=== PATIENT | female | born 1945 | race Caucasian/White ===

== ENCOUNTER → 2023-10-05 08:54 | Outpatient (REF) | payer MEDICARE, OTHER, SELFPAY ==
[2023-10-05 09:26] LABS: % Basophils 2.5 % (0-2); % Eosinophils 3.7 % (0-6); % Immature Granulocytes 0.2 % (0-0.5); % Lymphocytes 35.5 % (20.5-51.1); % Monocytes 10.4 % (1.7-9.3); % Neutrophils 47.7 % (42.2-75.2); Absolute Basophils 0.1 10^3/uL (0-0.2); Absolute Eosinophils 0.2 10^3/uL (0-0.7); Absolute Monocytes 0.6 10^3/uL (0.1-0.6); Absolute Neutrophils 2.7 10^3/uL (1.4-6.5); Hematocrit 34.7 % (37.0-47.0); Hemoglobin 11.7 g/dL (12.0-16.0); Mean Corp Hgb Conc. 33.7 g/dL (33.0-37.0); Mean Corpuscular Hgb 29.9 pg (27.0-31.0); Mean Corpuscular Volume 88.7 fL (81.0-99.0); Mean Platelet Volume 9.9 fL (7.4-10.4); Nucleated Red Blood Cells % 0 %; Platelet Count 231 10^3/uL (130-400); Red Blood Cell Count 3.91 10^6/uL (4.20-5.40); White Blood Cell Count 5.7 10^3/uL (4.8-10.8)
[2023-10-05 10:17] LABS: ALT (SGPT) 37 U/L (0-35); AST (SGOT) 37 U/L (14-36); Albumin 3.9 g/dl (3.5-5.0); Alkaline Phosphatase 148 U/L (38-126); Blood Urea Nitrogen 29 mg/dl (7-17); Calcium 8.7 mg/dl (8.4-10.2); Carbon Dioxide 26 mmol/L (22-30); Chloride 106 mmol/L (98-107); Glucose 91 mg/dl (70-99); HDL Cholesterol 53 mg/dl; LDL Cholesterol, Calculated 97 mg/dl; Potassium 3.8 mmol/L (3.5-5.1); Sodium 142 mmol/L (135-145); Total Bilirubin 0.5 mg/dl (0.2-1.3); Total Cholesterol 166 mg/dl (50-199); Total Protein 6.8 g/dl (6.3-8.2); Triglyceride 84 mg/dl (10-149); Very Low Density Lipoprotein 16 mg/dl (0-30); eGFR 42.35
[2023-10-05 10:31] LABS: Free T4 1.91 ng/dl (0.78-2.19)
[2023-10-05 10:45] LABS: TSH 1.05 uIU/ml (0.47-4.68)
== END ==
LOC: OLABPATH 08:54
PROVIDERS: ATTENDING PHYSICIAN Internal Medicine
DX: N18.30 Chronic kidney disease, stage 3 unspecified (principal); I51.3 Intracardiac thrombosis, not elsewhere classified; E78.5 Hyperlipidemia, unspecified; I50.30 Unspecified diastolic (congestive) heart failure
CPT/HCPCS: 36415; 80053; 80061; 84439; 84443; 85025

== ENCOUNTER 2024-02-19 15:04 | Emergency (ER) | payer MEDICARE, OTHER, SELFPAY ==
[2024-02-19 15:10] VITALS: BP 130/56; BMI 23.4
--- NOTE | 2024-02-19 15:16 | ED.GENMED ---
History of Present Illness
<Jeana Morocho MD, Resident - Last Filed: 02/19/24 19:17>
General
Chief Complaint: Abdominal Symptoms
Source: patient
Exam Limitations: dementia
Time Seen by Provider: 02/19/24 15:10
Nursing documentation reviewed up to this point in time: agreed with
History of Present Illness
History of Present Illness:
78-year-old female with past medical history significant for brain tumor (unknown type), HFpEF, paroxysmal A-fib s/p Watchman procedure, UTI presents to the hospital for evaluation of increased lethargy weakness and nausea. Patient states that her
nausea started in the morning today and she had several episodes of emesis however she could not recall the color of her vomitus or if there is blood in it. Patient also stated that she has increased bowel movements she had 3 bowel movements since
yesterday night however she could not recall if she saw the color of stool or the consistency of stool. Patient states that she has been feeling weak and lethargic and her last meal was yesterday night.
She denies having fever, chills, abdominal pain, chest pain, shortness of breath, exposure to sick contacts or eating food at restaurants recently, recent travel history, focal weakness, lightheadedness, dizziness, syncope or near syncopal episodes.
She could not recall her primary care physician. She is oriented to herself, time, person and place.
If applicable-neuro sx onset
Onset of symptoms known: No
Time pt last seen normal is known: No
Past History
<Jeana Morocho MD, Resident - Last Filed: 02/19/24 19:17>
Past History
ED Past Medical History: Arrthythmia (afoib), CHF, HTN, Hypercholesterolemia and Other (UTI)
ED Past Surgical History: Cardiac (watchman)
Social History
Tobacco: Non-smoker
Alcohol: None
Drug: None
Personal: Single
Living: assisted living
Employment: Retired
Family History
Family History: Other
Review of Systems
<Jeana Morocho MD, Resident - Last Filed: 02/19/24 19:17>
Review of Systems
Allergies reviewed?: Yes
Constitutional: Reports fatigue; Denies fever, weight loss, night sweats or chills
EENT: Denies no symptoms
Respiratory: Denies no symptoms
Cardiac: Denies no symptoms
ABD/GI: Reports nausea, vomiting and other (Increased bowel movements.); Denies abdominal pain, diarrhea, constipated, bloody stools, black stools, anorexia or pain
: Reports no symptoms
Musculoskeletal: Reports no symptoms
Skin: Reports no symptoms
Neurological: Reports no symptoms
Endocrine: Reports no symptoms
Hematologic/Lymphatic: Reports no symptoms
Psychiatric: Reports no symptoms
Phy Exam
<Jeana Morocho MD, Resident - Last Filed: 02/19/24 19:17>
Physical Exam
Physical Exam:
General appearance - well built, and well nourished.
HEENT - Hints exam positive, right eye central nystagmus noted.
Eyes - b/l Pupil reactive to accommodation reflex, extraocular movements - full and smooth,
Ears - right ear - auditory canal clear, tympanic membrane visualized, light reflex present., left ear - auditory canal clear, tympanic membrane visualized, light reflex present.
Nose - septum intact, no turbinate hypertrophy
Oral cavity - pharynx appears normal, uvula midline, good dental hygiene.
Neck - no thyromegaly, no cervical lymphadenopathy
CVS - s1, s2 present. No murmurs, rubs and gallops.
Respiratory - b/l lobes clear to auscultation, no wheezes, rales and Ronchi.
Abdomen - soft, nontender, non-distended, no organomegaly, bowel sounds present.
Extremities - no clubbing, cyanosis, or edema
Neuro - normal strength, tone, and reflexes in all 4 extremities, pronator drift in the right hand noted, drift noted bilaterally in lower extremities
NIH Stroke Score
Level of Consciousness: 0 - Alert
LOC questions: 0-Answers both correctly
LOC Commands: 0-Performs both correctly
Best Gaze: 0-Normal
Visual Sy: 0=Normal, no visual loss
Facial palsy: 0=Normal, symmetrical
Motor - Right Arm: 1=Drift < 10 seconds
Motor - Left Arm: 0=No drift 10 seconds
Motor - Right Le-Drift < 5 seconds
Motor - Left Le-Drift < 5 seconds
Limb Ataxia: 1-Present in one limb
Sensation: 0-Normal
Best Language: 0-No aphasia
Dysarthria: 0-Normal
Extinction and Inattention: 0-No abnormality
Total Score:: 4
<Colby Bhardwaj, DO - Last Filed: 02/19/24 19:05>
NIH Stroke Score
Total Score:: 4
Course
<Jeana Morocho MD, Resident - Last Filed: 02/19/24 19:17>
Orders/Labs/Results
Orders:
Orders
02/19/24 15:08
Electrocardiogram (*1) Urgent
Reason for Study: Abdominal Pain
EKG- Treatment ONCE
02/19/24 15:24
Complete Blood Count/With Diff Urgent
Comprehensive Metabolic Panel Urgent
Lactic Acid Urgent
PTT Urgent
Prothrombin Time Urgent
02/19/24 15:48
Urinalysis Reflex To Culture Urgent
Date Specimen was Collected: 02/19/24
Time Specimen was Collected: 18:51
02/19/24 15:49
CT Head W/o Iv Contrast Urgent
Comment:
Reason For Exam: pronator drift, with h/o brain tumor
02/19/24 15:57
Ondansetron Injectable [Zofran] 4 mg IV NOW STA
02/19/24 16:00
0.9% Sodium Chloride 500 ml [Nss] 500 ml IV BOLUS
02/19/24 18:57
Prothrombin Complex(Pcc),Human [Kcentra] 1,450 unit Empty Viaflex Container 100 ml [Viaflex Empty Container] 0 ml IV NOW
Does patient have a dx of serious acute active bleeding?: Yes
Does patient have prior history of HIT?: No
Abnormal Lab Results
02/19/24
15:24
RBC 3.88 L 10^6/uL
(4.20-5.40)
Hgb 11.9 L g/dL
(12.0-16.0)
Hct 34.5 L %
(37.0-47.0)
Abs Immat Gran (auto) 0.1 H 10^3/uL
(0-0.05)
Absolute Neuts (auto) 9.7 H 10^3/uL
(1.4-6.5)
Absolute Lymphs (auto) 0.7 L 10^3/uL
(1.2-3.4)
Immature Gran % 0.6 H %
(0-0.5)
Neutrophils % 90.5 H %
(42.2-75.2)
Lymphocytes % 6.7 L %
(20.5-51.1)
PT 18.8 H Sec
(11.4-14.6)
Carbon Dioxide 21 L mmol/L
(22-30)
BUN 22 H mg/dl
(7-17)
Glucose 171 H mg/dl
(70-99)
AST 71 H U/L
(14-36)
ALT 71 H U/L
(0-35)
Alkaline Phosphatase 158 H U/L
(38-126)
02/19/24 15:24
02/19/24 15:24
Vital Signs
Initial and Last Documented VS:
Initial Vital Signs
Temp Pulse Resp BP Pulse Ox
100.1 F 86 24 130/56 92
02/19/24 15:10 02/19/24 15:10 02/19/24 15:10 02/19/24 15:10 02/19/24 15:10
Last Documented Vital Signs
Temp Pulse Resp BP Pulse Ox
98.1 F 80 17 128/63 95
02/19/24 16:30 02/19/24 18:53 02/19/24 18:53 02/19/24 18:53 02/19/24 15:10
<Colby Bhardwaj, DO - Last Filed: 02/19/24 19:05>
Orders/Labs/Results
Orders:
Orders
02/19/24 15:08
Electrocardiogram (*1) Urgent
Reason for Study: Abdominal Pain
EKG- Treatment ONCE
02/19/24 15:24
Complete Blood Count/With Diff Urgent
Comprehensive Metabolic Panel Urgent
Lactic Acid Urgent
PTT Urgent
Prothrombin Time Urgent
02/19/24 15:48
Urinalysis Reflex To Culture Urgent
Date Specimen was Collected: 02/19/24
Time Specimen was Collected: 18:51
02/19/24 15:49
CT Head W/o Iv Contrast Urgent
Comment:
Reason For Exam: pronator drift, with h/o brain tumor
02/19/24 15:57
Ondansetron Injectable [Zofran] 4 mg IV NOW STA
02/19/24 16:00
0.9% Sodium Chloride 500 ml [Nss] 500 ml IV BOLUS
02/19/24 18:57
Prothrombin Complex(Pcc),Human [Kcentra] 1,450 unit Empty Viaflex Container 100 ml [Viaflex Empty Container] 0 ml IV NOW
Does patient have a dx of serious acute active bleeding?: Yes
Does patient have prior history of HIT?: No
Abnormal Lab Results
02/19/24
15:24
RBC 3.88 L 10^6/uL
(4.20-5.40)
Hgb 11.9 L g/dL
(12.0-16.0)
Hct 34.5 L %
(37.0-47.0)
Abs Immat Gran (auto) 0.1 H 10^3/uL
(0-0.05)
Absolute Neuts (auto) 9.7 H 10^3/uL
(1.4-6.5)
Absolute Lymphs (auto) 0.7 L 10^3/uL
(1.2-3.4)
Immature Gran % 0.6 H %
(0-0.5)
Neutrophils % 90.5 H %
(42.2-75.2)
Lymphocytes % 6.7 L %
(20.5-51.1)
PT 18.8 H Sec
(11.4-14.6)
Carbon Dioxide 21 L mmol/L
(22-30)
BUN 22 H mg/dl
(7-17)
Glucose 171 H mg/dl
(70-99)
AST 71 H U/L
(14-36)
ALT 71 H U/L
(0-35)
Alkaline Phosphatase 158 H U/L
(38-126)
02/19/24 15:24
02/19/24 15:24
Vital Signs
Initial and Last Documented VS:
Initial Vital Signs
Temp Pulse Resp BP Pulse Ox
100.1 F 86 24 130/56 92
02/19/24 15:10 02/19/24 15:10 02/19/24 15:10 02/19/24 15:10 02/19/24 15:10
Last Documented Vital Signs
Temp Pulse Resp BP Pulse Ox
98.1 F 80 17 128/63 95
02/19/24 16:30 02/19/24 18:53 02/19/24 18:53 02/19/24 18:53 02/19/24 15:10
<Jeana Morocho MD, Resident - Last Filed: 02/19/24 19:17>
MDM/Problems Addressed
Differential Diagnosis Includes:
Viral gastroenteritis, increased intracranial pressure secondary to brain tumor, stroke, appendicitis.
MDM/Problems Addressed:
IV fluid bolus and Zofran IV given. EKG shows no QT prolongation repeat EKG monitoring for QT prolongation.
Chronic conditions affecting care: Other (Brain tumor unknown type.)
<Jeana Morocho MD, Resident - Last Filed: 02/19/24 19:17>
*Radiology
Radiology exam reviewed: preliminary read by ED provider and radiology read reviewed
*Pulse Oximetry
Patient hypoxic: no
*EKG
Interpreted by ED Provider?: Yes
<Colby Bhardwaj, DO - Last Filed: 02/19/24 19:05>
*Critical Care Note
Total Time (30-74mins, 75-104mins- exclusive of procedures): 35 min
comment:
The high probability of a clinically significant, sudden or life threatening deterioration of the neurovascular system(s) required my full and direct attention, intervention and personal management. The aggregate critical care time was 35 minutes.
This time is in addition to time spent performing reported procedures but includes the following:
[x] Data Review and interpretation
[x] Patient assessment and monitoring of vital signs
[x] Documentation
[x] Medication orders and management
<Jeana Morocho MD, Resident - Last Filed: 02/19/24 19:17>
Update Note
Update Note:
7 PM Case discussed with [facility] neurosurgeon Dr. Lobo who accepted patient. Her records indicate that she is on Xarelto. Will give Kcentra
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 New diagnosis updated with the patient. Discussed the risks of having cerebellar herniation and increased intracranial pressure if patient
is not immediately transferred. Per longterm records patient took her last dose of Eliquis in the morning today. IV Kcentra for reversal of Eliquis given to the patient before transfer.
Patient is being transferred to [facility] neurosurgery ICU under care of Avila Castellanos.
<Colby Bhardwaj, DO - Last Filed: 02/19/24 19:05>
Update Note
Update Note:
7 PM Case discussed with [facility] neurosurgeon Dr. Lobo who accepted patient. Her records indicate that she is on Xarelto. Will give Kcentra
ED Attending Note
<Jeana Morocho MD, Resident - Last Filed: 02/19/24 19:17>
-
Portions of this chart may have been created with voice recognition software.� Occasional wrong word or��sound alike� substitutions may have occurred due to the inherent limitations of voice recognition software.
<Colby Bhardwaj, DO - Last Filed: 02/19/24 19:05>
ED Attending Note
Patient seen and examined by attending physician: Yes
I performed a history and physical exam of patient and discussed management with resident, I reviewed resident's note and agree with documented findings and plan of care.: Yes
ED Attending Note:
I have seen and evaluated the patient with a [id number] encounter. I have spoken to the resident and involved in the medical history, the physical exam, medical decision making.
Evaluation and management service: agree unless noted differently below.
Results interpretation: agree unless noted differently below.
Focused HPI: 78-year-old female presenting from the nursing facility with increased lethargy, weakness and nausea. Patient complains of vomiting and increased bowel movements. She is unsure if this is diarrhea or not.
Physical exam: Dry mucous membranes. Soft and nontender abdomen. Sitting in bed comfortably
Medical Decision Making: Given her prior history of brain tumor, will obtain CT to rule out any evidence of intracranial bleeding or increased mass effect. Patient given fluids and nausea medicine for presumed viral gastroenteritis. Although she
has a low-grade fever, she has a very benign and nontender abdomen. White blood cell count and lactic acid within normal limits. Urinalysis pending
Update 6:36 PM patient found to have intracranial bleed which is likely from her known brain tumor. Will transfer to tertiary care center
Discharge Plan
Departure
Patient Disposition: Acute Care Hospital
Date of Disposition: 02/19/24
Time of Disposition: 19:15
Admit to: ICU
Discharge Problem:
Intracranial hemorrhage, Acute cerebellar hemorrhage
Prescriptions:
No Action
multivitamin Tablet
1 tab PO DAILY
acetaminophen 325 mg Tablet
650 mg PO Q4H PRN (Reason: mild pain)
pravastatin 40 mg tablet
40 mg PO HS
amiodarone 200 mg tablet
200 mg PO DAILY
levetiracetam 500 mg tablet
500 mg PO BID
citalopram 10 mg tablet
10 mg PO DAILY
thiamine HCl (vitamin B1) [Vitamin B-1] 100 mg Tablet
100 mg PO DAILY
ketorolac 0.5 % drops
1 drp LEFT EYE QID@08,12,16,20
prednisolone acetate 1 % drops,suspension
1 drp LEFT EYE BID
magnesium hydroxide [Milk of Magnesia] 400 mg/5 mL Suspension
30 ml PO DAILY PRN (Reason: constipation)
amlodipine 10 mg Tablet
10 mg PO DAILY
ferrous sulfate 325 mg (65 mg iron) Tablet
325 mg PO DAILY
folic acid 1 mg Tablet
1 mg PO DAILY
metoprolol tartrate 25 mg tablet
25 mg PO BID
furosemide 20 mg Tablet
40 mg PO BID AT 0800,1600 Qty: 60 0RF
cephalexin 500 mg capsule
500 mg PO TID Qty: 0 0RF
Rx Instructions:
x 10 days
Eliquis 5 mg tablet
5 mg PO BID 30 Days Qty: 60 0RF
Referrals:
Marshall Amos DO [Family Provider] -
Hospital Transfer
Other hospital: [facility]
I certify that the patient requires transfer: Yes
Discussed case with accepting physician: Avila Castellanos.
Reason for transfer: higher level of care
Interventions
Interventions:
*Risk Screen - Suicide Last Done: 02/19/24 15:10
*General Assessment Last Done: 02/19/24 15:10
*Neglect/Abuse Screening Last Done: 02/19/24 15:10
ED- Fall Risk Assessment Last Done: 02/19/24 15:22
*ED COVID-19 Vaccine History Last Done: 02/19/24 15:10
OI-Izfate-Lhfzpxlpvi Assessment Last Done: 02/19/24 15:22
Discharge Date and Time
Print Language: TELUGU
[2024-02-19 15:33] LABS: % Basophils 0.5 % (0-2); % Immature Granulocytes 0.6 % (0-0.5); % Lymphocytes 6.7 % (20.5-51.1); % Monocytes 1.7 % (1.7-9.3); % Neutrophils 90.5 % (42.2-75.2); Absolute Basophils 0.1 10^3/uL (0-0.2); Absolute Immature Granulocytes 0.1 10^3/uL (0-0.05); Absolute Lymphocytes 0.7 10^3/uL (1.2-3.4); Absolute Monocytes 0.2 10^3/uL (0.1-0.6); Absolute Neutrophils 9.7 10^3/uL (1.4-6.5); Hematocrit 34.5 % (37.0-47.0); Hemoglobin 11.9 g/dL (12.0-16.0); Mean Corp Hgb Conc. 34.5 g/dL (33.0-37.0); Mean Corpuscular Hgb 30.7 pg (27.0-31.0); Mean Corpuscular Volume 88.9 fL (81.0-99.0); Mean Platelet Volume 9.3 fL (7.4-10.4); Nucleated Red Blood Cells % 0 %; Platelet Count 231 10^3/uL (130-400); Red Blood Cell Count 3.88 10^6/uL (4.20-5.40); Red Cell Dist. Width 13.5 % (11.5-14.5); White Blood Cell Count 10.8 10^3/uL (4.8-10.8)
[2024-02-19 15:44] LABS: INR 1.59; PT 18.8 Sec (11.4-14.6)
[2024-02-19 15:45] LABS: APTT 33.8 Sec (23.4-35.0)
[2024-02-19 15:47] LABS: Lactic Acid 1.2 mmol/L (0.7-2.0)
[2024-02-19 15:53] LABS: ALT (SGPT) 71 U/L (0-35); AST (SGOT) 71 U/L (14-36); Albumin 4.6 g/dl (3.5-5.0); Alkaline Phosphatase 158 U/L (38-126); Blood Urea Nitrogen 22 mg/dl (7-17); Calcium 9.2 mg/dl (8.4-10.2); Carbon Dioxide 21 mmol/L (22-30); Chloride 105 mmol/L (98-107); Estimated Creatinine Clearance 41 ml/min; Glucose 171 mg/dl (70-99); Potassium 3.6 mmol/L (3.5-5.1); Sodium 141 mmol/L (135-145); Total Bilirubin 0.7 mg/dl (0.2-1.3); Total Protein 7.5 g/dl (6.3-8.2); eGFR > 60.00
[2024-02-19 16:00] VITALS: BP 138/60
[2024-02-19] MEDS: ZOFRAN 4 MG IV (16:01)
[2024-02-19] MEDS: NSS 500 IV (16:06)
[2024-02-19 17:00] VITALS: BP 132/56
[2024-02-19 18:53] VITALS: BP 128/63
[2024-02-19 19:00] VITALS: BP 126/58
[2024-02-19 19:35] LABS: Urine Albumin Trace (Neg - Trace); Urine Bilirubin Negative (Negative); Urine Character Clear (Clear); Urine Color Yellow; Urine Glucose Negative (Negative); Urine Ketone Trace (Negative); Urine Leukocyte Negative (Negative); Urine Nitrite Negative (Negative); Urine Occult Blood Negative (Negative); Urine Specific Gravity 1.015 (<1.030); Urine Urobilinogen Negative (Neg - 1+)
[2024-02-19] MEDS: KCENTRA 60 UNIT IV (19:38)
== END 2024-02-19 20:00 | disposition short-term general hospital (02) ==
LOC: EMR 15:04
PROVIDERS: Registered Nurse; EMERGENCY PHYSICIAN Student in an Organized Health Care Education/Training Program; FAMILY PHYSICIAN Internal Medicine
DX: I61.4 Nontraumatic intracerebral hemorrhage in cerebellum (principal); D49.6 Neoplasm of unspecified behavior of brain; I11.0 Hypertensive heart disease with heart failure; I50.32 Chronic diastolic (congestive) heart failure; E78.00 Pure hypercholesterolemia, unspecified; I48.0 Paroxysmal atrial fibrillation; F03.90 Unspecified dementia, unspecified severity, without behavioral disturbance, psychotic disturbance, mood disturbance, and anxiety; Z79.01 Long term (current) use of anticoagulants
CPT/HCPCS: 96374; 96375; 96361; 99291; 70450; 80053; 81003; 83605; 85025; 85610; 85730; 93005; J7168

== ENCOUNTER 2024-04-24 16:55 | Emergency (ER) | payer MEDICARE, OTHER, SELFPAY ==
[2024-04-24 17:16] VITALS: BP 128/62
--- NOTE | 2024-04-24 17:18 | ED.GENMED ---
ED Provider Triage
<JENNIFER Graf - Last Filed: 04/24/24 17:23>
-
Patient seen by provider in Triage?: Seen in Triage
Attestation: A medical screening examination has been initiated by a qualified medical provider. Based on the assessment performed at this time, it has been determined that an emergent medical condition may exist and the patient has been informed
that further medical evaluation and possible additional diagnostic testing may be needed.
HPI: Patient is a 78-year-old female from [facility] sent for unwitnessed fall. Pt denies headache. Denies neck pain , has no complaints . REcords from [facility] obtained no thinners.
GENERAL: Alert , in no apparent distress
EYE: No visual abnormalities.
NECK: Trachea midline
ENT: No visible abnormalities.
LUNGS: No acute respiratory distress
NEUROLOGICAL: Alert and oriented
SKIN: Skin intact. No visible changes.
MUSCULOSKELETAL: Moving extremities normally
PSYCH: Normal and appropriate interaction.
This is a medical evaluation conducted in person to initiate diagnostic evaluation and provide initial therapeutics. Please see further documentation by the treating clinician.
History of Present Illness
<JENNIFER Graf - Last Filed: 04/24/24 17:23>
General
Chief Complaint: Fall
Time Seen by Provider: 04/24/24 20:25
<Des Dubois PA-C - Last Filed: 04/24/24 23:47>
History of Present Illness
History of Present Illness:
78-year-old female presents via EMS from [facility] for evaluation after a fall. She is currently nonambulatory after a brain tumor excision was performed. Attempted to walk on if she is unable to and fell, striking her head on the ground.
No reported LOC. No blood thinners
Past History
<JENNIFER Graf - Last Filed: 04/24/24 17:23>
Past History
ED Past Medical History: Arrthythmia (afoib), CHF, HTN, Hypercholesterolemia and Other (UTI)
ED Past Surgical History: Cardiac (watchman)
Social History
Tobacco: Non-smoker
Alcohol: None
Drug: None
Personal: Single
Living: assisted living
Employment: Retired
Family History
Family History: Other
Review of Systems
<Des Dubois PA-C - Last Filed: 04/24/24 23:47>
Review of Systems
Allergies reviewed?: Yes
All Other Systems: ROS reviewed and negative except as documented in HPI and ROS
Phy Exam
<Des Dubois PA-C - Last Filed: 04/24/24 23:47>
Physical Exam
Physical Exam:
GEN: Well appearing, NAD, WDWN
HEENT: Oral mucosa moist, no scleral icterus, no nasal congestion
Cardiac: Regular rate
Lung: No respiratory distress, no tachypnea
MSK: No gross deformity or injuries
Skin: Good color, no pallor or jaundice, no rashes
Neuro: AO x3; CN II-XII grossly intact. BUE strength 5/5 in all fuchs, sensation intact and symmetric. BLE strength 5/5 in all fuchs, sensation intact and symmetric
Psych: Calm, cooperative
Course
<JENNIFER Graf - Last Filed: 04/24/24 17:23>
Orders/Labs/Results
Orders:
Orders
04/24/24 17:00
CT Cervical Spine W/o Iv Contr Urgent
Comment:
Reason For Exam: fall
CT Head W/o Iv Contrast Urgent
Comment:
Reason For Exam: fall
Vital Signs
Initial and Last Documented VS:
Initial Vital Signs
Temp Pulse Resp BP Pulse Ox
98.4 F 63 18 128/62 96
04/24/24 17:16 04/24/24 17:16 04/24/24 17:16 04/24/24 17:16 04/24/24 17:16
Last Documented Vital Signs
Temp Pulse Resp BP Pulse Ox
98.4 F 60 19 151/60 95
04/24/24 17:16 04/24/24 21:39 04/24/24 21:39 04/24/24 21:39 04/24/24 21:39
<Des Dubois PA-C - Last Filed: 04/24/24 23:47>
Orders/Labs/Results
Orders:
Orders
04/24/24 17:00
CT Cervical Spine W/o Iv Contr Urgent
Comment:
Reason For Exam: fall
CT Head W/o Iv Contrast Urgent
Comment:
Reason For Exam: fall
Vital Signs
Initial and Last Documented VS:
Initial Vital Signs
Temp Pulse Resp BP Pulse Ox
98.4 F 63 18 128/62 96
04/24/24 17:16 04/24/24 17:16 04/24/24 17:16 04/24/24 17:16 04/24/24 17:16
Last Documented Vital Signs
Temp Pulse Resp BP Pulse Ox
98.4 F 60 19 151/60 95
04/24/24 17:16 04/24/24 21:39 04/24/24 21:39 04/24/24 21:39 04/24/24 21:39
<Des Dubois PA-C - Last Filed: 04/24/24 23:47>
MDM/Problems Addressed
MDM/Problems Addressed:
Traumatic injuries identified on imaging, discharged in stable condition
<Des Dubois PA-C - Last Filed: 04/24/24 23:47>
*Critical Care Note
Total Time (30-74mins, 75-104mins- exclusive of procedures): Not Applicable
ED Attending Note
<JENNIFER Graf - Last Filed: 04/24/24 17:23>
-
Portions of this chart may have been created with voice recognition software.� Occasional wrong word or��sound alike� substitutions may have occurred due to the inherent limitations of voice recognition software.
Discharge Plan
Departure
Patient Disposition: Home (Routine Discharge)
Date of Disposition: 04/24/24
Time of Disposition: 20:34
Patient with high blood pressure during this ER visit?: No
Discharge Problem:
Fall
Instructions: Preventing falls in adults
Prescriptions:
No Action
multivitamin Tablet
1 tab PO DAILY
acetaminophen 325 mg Tablet
650 mg PO Q4H PRN (Reason: mild pain)
pravastatin 40 mg tablet
40 mg PO HS
amiodarone 200 mg tablet
200 mg PO DAILY
levetiracetam 500 mg tablet
500 mg PO BID
citalopram 10 mg tablet
10 mg PO DAILY
thiamine HCl (vitamin B1) [Vitamin B-1] 100 mg Tablet
100 mg PO DAILY
ketorolac 0.5 % drops
1 drp LEFT EYE QID@08,12,16,20
prednisolone acetate 1 % drops,suspension
1 drp LEFT EYE BID
magnesium hydroxide [Milk of Magnesia] 400 mg/5 mL Suspension
30 ml PO DAILY PRN (Reason: constipation)
amlodipine 10 mg Tablet
10 mg PO DAILY
ferrous sulfate 325 mg (65 mg iron) Tablet
325 mg PO DAILY
folic acid 1 mg Tablet
1 mg PO DAILY
metoprolol tartrate 25 mg tablet
25 mg PO BID
furosemide 20 mg Tablet
40 mg PO BID AT 0800,1600 Qty: 60 0RF
cephalexin 500 mg capsule
500 mg PO TID Qty: 0 0RF
Rx Instructions:
x 10 days
Eliquis 5 mg tablet
5 mg PO BID 30 Days Qty: 60 0RF
Referrals:
Marshall Amos DO [Family Provider] -
Interventions
Interventions:
*Risk Screen - Suicide Last Done: 04/24/24 17:16
*General Assessment Last Done: 04/24/24 17:16
*Neglect/Abuse Screening Last Done: 04/24/24 17:16
*Nursing Disposition Last Done: 04/24/24 21:41
ED-Musculoskeletal Assessment Last Done: 04/24/24 21:23
ED- Neurological Assessment Last Done: 04/24/24 21:40
ED-Skin Assessment Last Done: 04/24/24 21:23
Discharge Date and Time
Discharge Date/Time: 04/24/24 21:42
Print Language: INDONESIAN
[2024-04-24 21:39] VITALS: BP 151/60
== END 2024-04-24 21:42 ==
LOC: EMR 16:55
PROVIDERS: EMERGENCY PHYSICIAN Student in an Organized Health Care Education/Training Program; FAMILY PHYSICIAN Internal Medicine
DX: S09.90XA Unspecified injury of head, initial encounter (principal); W19.XXXA Unspecified fall, initial encounter; E78.00 Pure hypercholesterolemia, unspecified; I11.0 Hypertensive heart disease with heart failure; I50.9 Heart failure, unspecified; Z98.890 Other specified postprocedural states
CPT/HCPCS: 99284; 70450; 72125

== ENCOUNTER 2024-07-08 18:43 | Emergency (ER) | payer MEDICARE, OTHER, SELFPAY ==
[2024-07-08 18:46] VITALS: BP 153/74
[2024-07-08 19:42] LABS: ALT (SGPT) 24 U/L (0-35); AST (SGOT) 31 U/L (14-36); Albumin 4.3 g/dl (3.5-5.0); Alkaline Phosphatase 170 U/L (38-126); Blood Urea Nitrogen 23 mg/dl (7-17); Calcium 9.3 mg/dl (8.4-10.2); Carbon Dioxide 26 mmol/L (22-30); Chloride 107 mmol/L (98-107); Glucose 106 mg/dl (70-99); Potassium 4.3 mmol/L (3.5-5.1); Sodium 143 mmol/L (135-145); Total Bilirubin 0.8 mg/dl (0.2-1.3); Total Protein 7.5 g/dl (6.3-8.2); eGFR 46.33
[2024-07-08 21:32] LABS: % Basophils 1.4 % (0-2); % Eosinophils 2.7 % (0-6); % Immature Granulocytes 0.7 % (0-0.5); % Lymphocytes 19.7 % (20.5-51.1); % Monocytes 7.6 % (1.7-9.3); % Neutrophils 67.9 % (42.2-75.2); Absolute Basophils 0.1 10^3/uL (0-0.2); Absolute Eosinophils 0.2 10^3/uL (0-0.7); Absolute Immature Granulocytes 0.1 10^3/uL (0-0.05); Absolute Lymphocytes 1.6 10^3/uL (1.2-3.4); Absolute Monocytes 0.6 10^3/uL (0.1-0.6); Absolute Neutrophils 5.5 10^3/uL (1.4-6.5); Hematocrit 39.2 % (37.0-47.0); Hemoglobin 12.9 g/dL (12.0-16.0); Mean Corp Hgb Conc. 32.9 g/dL (33.0-37.0); Mean Corpuscular Hgb 29.2 pg (27.0-31.0); Mean Corpuscular Volume 88.7 fL (81.0-99.0); Mean Platelet Volume 9.8 fL (7.4-10.4); Nucleated Red Blood Cells % 0 %; Platelet Count 271 10^3/uL (130-400); Red Blood Cell Count 4.42 10^6/uL (4.20-5.40); Red Cell Dist. Width 14.2 % (11.5-14.5); White Blood Cell Count 8.1 10^3/uL (4.8-10.8)
[2024-07-08 21:44] LABS: Lactic Acid 1.6 mmol/L (0.7-2.0)
[2024-07-08 22:09] LABS: Urine Albumin 3+ (Neg - Trace); Urine Bilirubin Negative (Negative); Urine Character Slightly Cloudy (Clear); Urine Color Yellow; Urine Glucose Negative (Negative); Urine Ketone Negative (Negative); Urine Leukocyte 3+ (Negative); Urine Nitrite Negative (Negative); Urine Occult Blood 3+ (Negative); Urine Specific Gravity 1.015 (<1.030); Urine Urobilinogen Negative (Neg - 1+)
[2024-07-08 22:18] LABS: Urine Bacteria Many (Negative); Urine White Cell >100 /HPF (0-5)
[2024-07-08 22:22] LABS: Urine Calcium Oxalate Crystals Present
--- NOTE | 2024-07-08 22:45 | ED.GENMED ---
History of Present Illness
General
Chief Complaint: Skin Problem
Source: patient
Exam Limitations: none
Time Seen by Provider: 07/08/24 20:56
Nursing documentation reviewed up to this point in time: agreed with
History of Present Illness
History of Present Illness:
Patient to ED for eval of wound to plantar surface of right 2nd toe. Patient states wound has been there for a long time - unsure how long. States her OT noticed that wound was deep and facility had her transferred to the ED for eval. SHe denies
fever/chills. Painful to touch.
Past History
Past History
ED Past Medical History: Arrthythmia (afoib), CHF, HTN, Hypercholesterolemia and Other (UTI)
ED Past Surgical History: Cardiac (watchman)
Social History
Tobacco: Non-smoker
Alcohol: None
Drug: None
Personal: Single
Living: assisted living
Employment: Retired
Family History
Family History: Other
Review of Systems
Review of Systems
Allergies reviewed?: Yes
All Other Systems: ROS reviewed and negative except as documented in HPI and ROS
Constitutional: Reports no symptoms
EENT: Reports no symptoms
Respiratory: Reports no symptoms
Cardiac: Reports no symptoms
ABD/GI: Reports no symptoms
Musculoskeletal: Reports joint pain (Pain to right 2nd toe)
Skin: Reports no symptoms (ulceration to plantar surface of right 2nd toe)
Neurological: Reports no symptoms
Psychiatric: Reports no symptoms
Phy Exam
General Physical Exam
General Presentation: well appearing and no apparent distress
General age: appears stated age
General Skin: warm and dry
General Habitus: normal
General Mental: alert
Musculoskeletal Exam
Musculoskeletal Exam: full ROM and neuro vasc intact
Skin Exam
Skin Exam: normal color, warm/dry and other (0.5cm ulceration to plantar surface of right 2nd toe. No drainage noted. WOund culture obtained. No evidence of osteo onxray. No erythema to toe or foot.)
Psychiatric Exam
Psychiatric Exam: normal mood/affect
Course
Orders/Labs/Results
Orders:
Orders
07/08/24 18:56
Blood Culture Q20M
GRETCHEN Source: Blood/Venous
Specimen Description:
Comment: Urgent from separate sites. If patient screens positive for possible sepsis
07/08/24 19:03
Comprehensive Metabolic Panel Urgent
07/08/24 19:17
Blood Culture Q20M
GRETCHEN Source: Blood/Venous
Specimen Description:
Comment: Urgent from separate sites. If patient screens positive for possible sepsis
07/08/24 21:13
Toes 2 Views, Right [CR Toe(s) Min 2 Vw Right] Urgent
Comment:
Reason For Exam: wound/drainage
07/08/24 21:24
Complete Blood Count/With Diff Urgent
Lactic Acid Q4H
Comment: ON ICE, CANCEL 2ND ORDER IF FIRST LACTIC ACID LEVEL <2
07/08/24 22:01
Urinalysis Reflex To Culture Urgent
Date Specimen was Collected: 07/08/24
Time Specimen was Collected: 22:00
Urine Microscopic Reflex Cult Urgent
Urine Culture Urgent
GRETCHEN Source: U
Specimen Description:
Date Specimen was Collected: 07/08/24
Time Specimen was Collected: 22:00
Wound Culture [Wound/Abscess/Other Culture] Urgent
GRETCHEN Source: Toe
Specimen Description:
Date Specimen was Collected: 07/08/24
Time Specimen was Collected: 21:30
07/08/24 22:51
Cephalexin Monohydrate [Keflex] 500 mg PO NOW STA
Abnormal Lab Results
07/08/24 07/08/24 07/08/24
19:03 21:24 22:01
MCHC 32.9 L g/dL
(33.0-37.0)
Abs Immat Gran (auto) 0.1 H 10^3/uL
(0-0.05)
Immature Gran % 0.7 H %
(0-0.5)
Lymphocytes % 19.7 L %
(20.5-51.1)
BUN 23 H mg/dl
(7-17)
Creatinine 1.2 H mg/dL
(0.6-1.0)
Glucose 106 H mg/dl
(70-99)
Alkaline Phosphatase 170 H U/L
(38-126)
Ur Occult Blood Reflex 3+ A
(Negative)
Leukocyte Esterase Rfl 3+ A
(Negative)
Urine RBC 3-6 A /HPF
(0-2)
Urine WBC (Reflex) >100 A /HPF
(0-5)
Urine Bacteria (Reflex) Many A
(Negative)
Urine Albumin (Reflex) 3+ A
(Neg - Trace)
07/08/24 21:24
07/08/24 19:03
Vital Signs
Initial and Last Documented VS:
Initial Vital Signs
Temp Pulse Resp BP Pulse Ox
98.6 F 68 15 153/74 97
07/08/24 18:46 07/08/24 18:46 07/08/24 18:46 07/08/24 18:46 07/08/24 18:46
Last Documented Vital Signs
Temp Pulse Resp BP Pulse Ox
98.6 F 62 16 155/55 97
07/08/24 18:46 07/08/24 23:00 07/08/24 23:00 07/08/24 23:00 07/08/24 23:00
*Radiology
Radiology exam reviewed: radiology read reviewed
*Pulse Oximetry
Patient hypoxic: no
*Critical Care Note
Total Time (30-74mins, 75-104mins- exclusive of procedures): Not Applicable
ED Attending Note
-
Portions of this chart may have been created with voice recognition software.� Occasional wrong word or��sound alike� substitutions may have occurred due to the inherent limitations of voice recognition software.
Discharge Plan
Departure
Patient Disposition: Retirement/SNF
Date of Disposition: 07/08/24
Time of Disposition: 22:48
Patient with high blood pressure during this ER visit?: No
Condition: Good
Covid-19: Not Applicable
Discharge Problem:
Toe ulcer, Acute UTI
Instructions: [facility]ound Care ([place]), [facility]
Prescriptions:
New
cephalexin 500 mg capsule
500 mg PO BID 10 Days Qty: 20 0RF
No Action
multivitamin Tablet
1 tab PO DAILY
acetaminophen 325 mg Tablet
650 mg PO Q4H PRN (Reason: mild pain)
pravastatin 40 mg tablet
40 mg PO HS
amiodarone 200 mg tablet
200 mg PO DAILY
levetiracetam 500 mg tablet
500 mg PO BID
citalopram 10 mg tablet
10 mg PO DAILY
thiamine HCl (vitamin B1) [Vitamin B-1] 100 mg Tablet
100 mg PO DAILY
ketorolac 0.5 % drops
1 drp LEFT EYE QID@08,12,16,20
prednisolone acetate 1 % drops,suspension
1 drp LEFT EYE BID
magnesium hydroxide [Milk of Magnesia] 400 mg/5 mL Suspension
30 ml PO DAILY PRN (Reason: constipation)
amlodipine 10 mg Tablet
10 mg PO DAILY
ferrous sulfate 325 mg (65 mg iron) Tablet
325 mg PO DAILY
folic acid 1 mg Tablet
1 mg PO DAILY
metoprolol tartrate 25 mg tablet
25 mg PO BID
furosemide 20 mg Tablet
40 mg PO BID AT 0800,1600 Qty: 60 0RF
cephalexin 500 mg capsule
500 mg PO TID Qty: 0 0RF
Rx Instructions:
x 10 days
Eliquis 5 mg tablet
5 mg PO BID 30 Days Qty: 60 0RF
Referrals:
[facility] [Outside] - Call in 1-3 days for appt
Marshall Amos, [Family Provider] -
Interventions
Interventions:
*Risk Screen - Suicide Last Done: 07/08/24 18:46
*General Assessment Last Done: 07/08/24 18:46
*Neglect/Abuse Screening Last Done: 07/08/24 18:46
*ED- Fall Risk Assessment Last Done: 07/09/24 01:00
*ED COVID-19 Vaccine History Last Done: 07/08/24 18:46
*Nursing Disposition Last Done: 07/09/24 01:00
ED-Skin Assessment Last Done: 07/08/24 21:15
Discharge Date and Time
Discharge Date/Time: 07/09/24 01:01
Print Language: EGYPTIAN
[2024-07-08 23:00] VITALS: BP 155/55
[2024-07-08] MEDS: KEFLEX 500 MG PO (23:00)
== END 2024-07-09 01:01 ==
LOC: EMR 18:43
PROVIDERS: Emergency Medicine; Nurse Practitioner; EMERGENCY PHYSICIAN Student in an Organized Health Care Education/Training Program; FAMILY PHYSICIAN Internal Medicine
DX: N39.0 Urinary tract infection, site not specified (principal); L97.519 Non-pressure chronic ulcer of other part of right foot with unspecified severity; E78.00 Pure hypercholesterolemia, unspecified; I11.0 Hypertensive heart disease with heart failure; I50.9 Heart failure, unspecified; Z87.440 Personal history of urinary (tract) infections
CPT/HCPCS: 99283; 73660; 80053; 81003; 81015; 83605; 85025; 87040; 87070; 87086; 87205

== ENCOUNTER → 2024-10-10 10:51 | Outpatient (REF) | payer MEDICARE, OTHER, SELFPAY ==
[2024-10-10 11:45] LABS: % Basophils 1.9 % (0-2); % Eosinophils 2.6 % (0-6); % Immature Granulocytes 0.3 % (0-0.5); % Monocytes 8.7 % (1.7-9.3); % Neutrophils 57.5 % (42.2-75.2); Absolute Basophils 0.1 10^3/uL (0-0.2); Absolute Eosinophils 0.2 10^3/uL (0-0.7); Absolute Lymphocytes 1.7 10^3/uL (1.2-3.4); Absolute Monocytes 0.5 10^3/uL (0.1-0.6); Absolute Neutrophils 3.3 10^3/uL (1.4-6.5); Hematocrit 34.7 % (37.0-47.0); Hemoglobin 11.4 g/dL (12.0-16.0); Mean Corp Hgb Conc. 32.9 g/dL (33.0-37.0); Mean Corpuscular Hgb 29.5 pg (27.0-31.0); Mean Corpuscular Volume 89.9 fL (81.0-99.0); Mean Platelet Volume 11.1 fL (7.4-10.4); Nucleated Red Blood Cells % 0 %; Platelet Count 202 10^3/uL (130-400); Red Blood Cell Count 3.86 10^6/uL (4.20-5.40); Red Cell Dist. Width 14.3 % (11.5-14.5); White Blood Cell Count 5.8 10^3/uL (4.8-10.8)
[2024-10-10 11:52] LABS: ALT (SGPT) 16 U/L (0-35); AST (SGOT) 21 U/L (14-36); Albumin 3.4 g/dl (3.5-5.0); Alkaline Phosphatase 170 U/L (38-126); Blood Urea Nitrogen 20 mg/dl (7-17); Calcium 8.5 mg/dl (8.4-10.2); Carbon Dioxide 23 mmol/L (22-30); Chloride 115 mmol/L (98-107); Glucose 93 mg/dl (70-99); Potassium 3.6 mmol/L (3.5-5.1); Sodium 144 mmol/L (135-145); Total Bilirubin 0.6 mg/dl (0.2-1.3); Total Protein 5.8 g/dl (6.3-8.2); eGFR 51.43
[2024-10-10 12:39] LABS: TSH 1.61 uIU/ml (0.47-4.68)
== END ==
LOC: OLABPATH 10:51
PROVIDERS: ATTENDING PHYSICIAN Internal Medicine
DX: R41.841 Cognitive communication deficit (principal); K21.9 Gastro-esophageal reflux disease without esophagitis; I62.9 Nontraumatic intracranial hemorrhage, unspecified; I10 Essential (primary) hypertension
CPT/HCPCS: 36415; 80053; 84443; 85025

== ENCOUNTER → 2024-12-31 09:38 | Outpatient (REF) | payer MEDICARE, OTHER, SELFPAY | LOC: MRI 09:38 | PROVIDERS: ATTENDING PHYSICIAN Nurse Practitioner Family; FAMILY PHYSICIAN Internal Medicine | DX: Z98.890 Other specified postprocedural states (principal) | CPT/HCPCS: 70553; A9575 ==